=== PATIENT | female | born 1960 | race Two or more races ===

== ENCOUNTER → 2016-07-02 | Outpatient (CLI) | payer OTHER ==
--- NOTE | 2016-07-02 17:11 | DX ---
Left Wrist Series, 4 views Indication: Pain.. Comparison: None Findings: The bones are anatomically aligned. No fracture or joint space abnormality. Specifically, the navicular bone and scapholunate interval are normal. Minimal degenerative arthropathy is present at the trapezium navicular joint. Impression: Negative. No fracture or significant arthropathy.
== END ==
LOC: BRMIMAGING 15:31
PROVIDERS: ATTEND Internal Medicine
DX: M25.532 Pain in left wrist (principal)
CPT/HCPCS: 73110-PO